=== PATIENT | male | born 1980 ===

== ENCOUNTER 2017-01-16 06:12 | Emergency (ER) | payer OTHER ==
[2017-01-16 06:27] VITALS: BP 136/80; PULSE 65; TEMP 98.3; O2SAT 98
[2017-01-16] MEDS ORDERED: Alum-Mag Hydrox-Simethicone Susp (30 mL) PO STA (06:32)
--- NOTE | 2017-01-16 06:37 | ED PDOC ---
HPI: Abdomen Time Seen by Provider: 01/16/17 06:30 Chief Complaint (Nursing): Abdominal Pain Chief Complaint (Provider): Abdominal Pain History Per: Patient History/Exam Limitations: no limitations Onset/Duration Of Symptoms: Days (x3days) Current Symptoms Are (Timing): Still Present Associated Symptoms: Nausea (Some nausea). denies: Fever, Vomiting Additional Complaint(s): Andrea Felix is a 36 y/o male with no past medical history who presents to the ED with a chief complaint of epigastric pain onset x3days. Associated symptoms include some nausea. Patient describes pain as a burning feeling and pain is worse when eating. Denies any fever or vomiting. PMD: is CHF Past Medical History Reviewed: Historical Data, Nursing Documentation, Vital Signs Vital Signs: Last Vital Signs Temp 98.3 F 01/16/17 06:23 Pulse 65 01/16/17 06:23 Resp 15 01/16/17 07:15 BP 136/80 01/16/17 06:23 Pulse Ox 98 01/17/17 02:29 - Medical History PMH: No Chronic Diseases - Surgical History Surgical History: No Surg Hx - Family History Family History: States: Unknown Family Hx - Home Medications Home Medications: Ambulatory Orders Medication Instructions Recorded Famotidine [Pepcid] 20 mg PO BID #20 tab 01/16/17 Omeprazole 20 mg PO DAILY #30 capsule. 01/16/17 - Allergies Allergies/Adverse Reactions: Allergies Allergy/AdvReac Type Severity Reaction Status Date / Time No Known Allergies Allergy Verified 01/16/17 06:23 Review of Systems ROS Statement: Except As Marked, All Systems Reviewed And Found Negative Constitutional: Negative for: Fever Gastrointestinal: Positive for: Nausea (Some nausea), Other (Epigastric pain). Negative for: Vomiting Physical Exam - Reviewed Nursing Documentation Reviewed: Yes Vital Signs Reviewed: Yes - Physical Exam Appears: Positive for: Well, Non-toxic, No Acute Distress Head Exam: Positive for: ATRAUMATIC, NORMAL INSPECTION, NORMOCEPHALIC Skin: Positive for: Normal Color, Warm, Dry Eye Exam: Positive for: Normal appearance, EOMI, PERRL ENT: Positive for: Normal ENT Inspection Neck: Positive for: Normal Cardiovascular/Chest: Positive for: Regular Rate, Rhythm. Negative for: Murmur , Tachycardia Respiratory: Positive for: Normal Breath Sounds. Negative for: Wheezing, Respiratory Distress Gastrointestinal/Abdominal: Positive for: Normal Exam, Soft. Negative for: Tenderness Neurologic/Psych: Positive for: Alert, Oriented - ECG O2 Sat by Pulse Oximetry: 98 (RA) Pulse Ox Interpretation: Normal Medical Decision Making Medical Decision Making: Time: 629: Initial Impression: Gastritis Initial Plan: * Lidocaine 2% viscous 15ml PO stat * Maalox plus 30ml PO Stat * Pepcid 20mg PO Stat * Re-Eval 7AM: Pt. feeling much better, will d/c home with return precautions. Scribe Attestation: Documented by Chris Colon acting as a scribe for Junior Horta MD. Provider Scribe Attestation: All medical record entries made by the Scribe were at my direction and personally dictated by me. I have reviewed the chart and agree that the record accurately reflects my personal performance of the history, physical exam, medical decision making, and the department course for this patient. I have also personally directed, reviewed, and agree with the discharge instructions and disposition. Disposition - Clinical Impression Clinical Impression: Gastritis - Disposition Referrals: [facility] [Outside] Disposition Time: 07:00 Condition: STABLE Prescriptions: Famotidine [Pepcid] 20 mg PO BID #20 tab Omeprazole 20 mg PO DAILY #30 capsule. Instructions: Gastritis (ED) Forms: [facility] ED School/Work Excuse
[2017-01-16 08:16] VITALS: RESP 15
== END 2017-01-16 07:15 | disposition home or self-care (01) ==
LOC: EDBD 06:12 → H.ER 06:12
DX: K29.70 Gastritis, unspecified, without bleeding (principal); R11.0 Nausea